=== PATIENT | male | born 1980 | race Caucasian/White ===

== ENCOUNTER 2018-09-17 00:51 | Emergency (ER) | payer MEDICAID ==
[2018-09-17] MEDS ORDERED: solu-MEDROL 125 MG IV ONE (01:01)
[2018-09-17] MEDS ORDERED: DUONEB 0.5-3 MG/3 ml Neb IH ONE ×4 (01:01→02:24)
[2018-09-17] MEDS ORDERED: ROCEPHIN 1 Gm-D5w 50 ml Bag** 1 G/50 ML IVPB IV STA (01:01)
[2018-09-17] MEDS ORDERED: Zithromax 500 MG/ 250 ML NaCl Premix 500 MG/250 ML IVPB IV STA (01:01)
[2018-09-17] MEDS ORDERED: Sodium Chloride 0.9% 1000 ML 1,000 ML IV STA (01:03)
[2018-09-17 01:05] VITALS: BP 134/92
[2018-09-17] MEDS ORDERED: DELTASONE 20 MG PO ONE (01:22)
[2018-09-17] MEDS ORDERED: Augmentin 875-125 Tablet PO ONE (01:22)
[2018-09-17] MEDS ORDERED: DELTASONE 20 MG ONE (01:28)
[2018-09-17] MEDS ORDERED: Augmentin 875-125 Tablet ONE (01:28)
[2018-09-17 01:29] VITALS: O2SAT 98
--- NOTE | 2018-09-17 01:29 | ERPHSYRPT ---
- History of Present Illness Time Seen by Provider: 09/17/18 01:12 Source: patient Exam Limitations: clinical condition Patient Subjective Stated Complaint: pt states he has had a cough for ap[prox 1 week. states tonight while sitting he began coughing and couldnt catch his breath. Triage Nursing Assessment: pt alert and oriented, answers questions approp. pt ambulatory with steady gait noted. respirations nonlabored at th is time. exp wheezes noted bilat throughout. skin warm. Physician History: PATIENT WITH A HISTORY OF INTRAVENOUS SUBSTANCE ABUSE COMPLAINS OF A NONPRODUCTIVE COUGH FOR 1 WEEK, ASSOCIATED WITH DIFFICULTY BREATHING TONIGHT. DENIES FEVER, CHILLS, CHEST PAIN OR AUDIBLE WHEEZES. Timing/Duration: week(s) Cough Quality/Degree: moderate, dry cough Possible Cause: occasional episodes Modifying Factors: Improves With: activity Associated Symptoms: denies symptoms International travel in last 2 weeks: No Allergies/Adverse Reactions: No Known Drug Allergies Allergy (Verified 09/17/18 01:04) Hx Tetanus, Diphtheria Vaccination/Date Given: No Hx Influenza Vaccination/Date Given: No Hx Pneumococcal Vaccination/Date Given: No Immunizations Up to Date: No - Review of Systems Constitutional: No Fever, No Chills Eyes: No Symptoms Ears, Nose, & Throat: No Symptoms Respiratory: Cough, No Dyspnea Cardiac: No Symptoms, No Chest Pain, No Edema, No Syncope Abdominal/Gastrointestinal: No Symptoms, No Abdominal Pain, No Nausea, No Vomiting, No Diarrhea Genitourinary Symptoms: Incontinence, No Dysuria Musculoskeletal: No Symptoms, No Back Pain, No Neck Pain Skin: No Symptoms, No Rash Neurological: No Dizziness, No Focal Weakness, No Sensory Changes Psychological: No Symptoms Endocrine: No Symptoms All Other Systems: Reviewed and Negative - Past Medical History Pertinent Past Medical History: No - Past Surgical History Past Surgical History: No - Social History Smoking Status: Never smoker Exposure to second hand smoke: Yes Drug Use: marijuana Patient Lives Alone: No - Nursing Vital Signs Nursing Vital Signs: Initial Vital Signs Temperature 97.8 F 09/17/18 00:57 Pulse Rate 85 09/17/18 00:57 Respiratory Rate 18 09/17/18 00:57 Blood Pressure 134/92 09/17/18 00:57 O2 Sat by Pulse Oximetry 95 09/17/18 00:57 Pain Scale Pain Intensity 0 - Physical Exam General Appearance: no apparent distress, alert Eye Exam: PERRL/EOMI, eyes nml inspection Ears, Nose, Throat Exam: normal ENT inspection, TMs normal, pharynx normal, moist mucous membranes Neck Exam: normal inspection, non-tender, supple, full range of motion Respiratory Exam: normal breath sounds, lungs clear, other (GOOD AIR EXCHANGE OCCASIONAL TERMINAL EXPIRATORY WHEEZES, NO RHONCHI), No respiratory distress Cardiovascular Exam: regular rate/rhythm, normal heart sounds Gastrointestinal/Abdomen Exam: soft, No tenderness Back Exam: normal inspection, No CVA tenderness, No vertebral tenderness Extremity Exam: normal inspection, normal range of motion Neurologic Exam: alert, oriented x 3, cooperative, normal mood/affect, sensation nml, No motor deficits Skin Exam: normal color, warm, dry, No rash Lymphatic Exam: No adenopathy SpO2 Interpretation: normal SpO2: 98 O2 Delivery: Room Air - Radiology Exams Chest X-ray Interpretation: Interpreted by me, Negative, No Infiltrates Ordered Tests: Active Orders 24 hr Category Date Time Status EKG-ER Only STAT Care 09/17/18 01:01 Active Oxygen-ED Only Nasal Cannula 2 lpm Care 09/17/18 01:01 Active CHEST 1 VIEW (PORTABLE) Stat Exams 09/17/18 01:01 Taken Peak Expiratory Flow Rate ONCE RT 09/17/18 01:01 Active Respiratory Therapy Assessment DAILY RT 09/17/18 01:20 Active Medication Summary Generic Name Dose Route Start Last Admin Trade Name Freq PRN Reason Stop Dose Admin Albuterol Sulfate 2 gm 09/17/18 02:03 Ventolin Hfa Mdi IH 10/17/18 09:59 QID PRN DIFFICULTY BREATHING Discontinued Medications Generic Name Dose Route Start Last Admin Trade Name Freq PRN Reason Stop Dose Admin Albuterol/Ipratropium 3 ml 09/17/18 01:01 09/17/18 01:23 Duoneb 0.5-3 Mg/3 Ml Neb IH 09/17/18 01:02 3 ml STAT ONE Administration Albuterol/Ipratropium Confirm 09/17/18 01:21 Duoneb 0.5-3 Mg/3 Ml Neb Administered 09/17/18 01:22 Dose 3 ml IH .STK-MED ONE Albuterol/Ipratropium 3 ml 09/17/18 02:03 Duoneb 0.5-3 Mg/3 Ml Neb IH 09/17/18 02:04 STAT ONE Amoxicillin/Clavulanate Potassium 875 mg 09/17/18 01:22 09/17/18 01:29 Augmentin 875-125 Tablet PO 09/17/18 01:23 875 mg STAT ONE Administration Amoxicillin/Clavulanate Potassium Confirm 09/17/18 01:28 Augmentin 875-125 Tablet Administered 09/17/18 01:29 Dose 875 mg .ROUTE .STK-MED ONE Ceftriaxone Sodium/Dextrose 1 g in 50 mls @ 100 mls/hr 09/17/18 01:01 01:24 Rocephin 1 Gm-D5w 50 Ml Bag IV 09/17/18 01:30 Not Given STAT STA Azithromycin 500 mg in 250 mls @ 250 mls/hr 09/17/18 01:01 09/17/18 01:24 Zithromax 500 Mg/ 250 Ml Nacl Premix IV 09/17/18 02:00 Not Given STAT STA Sodium Chloride 1,000 mls @ 999 mls/hr 09/17/18 01:03 09/17/18 01:24 Sodium Chloride 0.9% 1000 Ml IV 09/17/18 02:03 Not Given .Q1H1M STA Methylprednisolone Sodium Succinate 125 mg 09/17/18 01:01 09/17/18 01:24 Solu-Medrol 125 Mg IV 09/17/18 01:02 Not Given STAT ONE Prednisone 60 mg 09/17/18 01:22 09/17/18 01:29 Deltasone 20 Mg PO 09/17/18 01:23 60 mg STAT ONE Administration Prednisone Confirm 09/17/18 01:28 Deltasone 20 Mg Administered 09/17/18 01:29 Dose 60 mg .ROUTE .STK-MED ONE Lab/Rad Data: Laboratory Results 09/17/18 Range/Units 01:20 Influenza Type A Ag NEGATIVE (NEGATIVE) Influenza Type B Ag NEGATIVE (NEGATIVE) RSV (PCR) NEGATIVE (Negative) - Progress Progress: improved Air Movement: good Progress Note: 09/17/18 01:27 UNABLE TO OBTAIN INTRAVENOUS ACCESS. PEAK FLOW- [id number], POST 400 , DUONEB AEROSOL, PREDNISONE 60MG, AUGMENTIN 875MG ORALLY 09/17/18 02:17 Counseled pt/family regarding: diagnosis, need for follow-up, rad results - Departure Departure Disposition: Home Clinical Impression: ACUTE BRONCHITIS WITH BRONCHIOSPASM Condition: Stable Critical Care Time: No Referrals: ELISABETH BUSTAMANTE [Primary Care Provider] - Additional Instructions: PREDNISONE 20MG, 2 TABLETS DAILY FOR 4 DAYS. ANTIBIOTIC AUGMENTIN 875MG TWICE DAILY FOR 10 DAYS. VENTOLIN INHALER HFA 8MG, 2 PUFFS EVERY 4 HOURS NEEDED FOR DIFFICULTY BREATHING. Prescriptions: Albuterol 8 gm Mdi Hfa [Ventolin Hfa MDI] 2 puffs IH QID #1 hfa.aer.ad Amox Tr/Potass Clav. 875 mg [Augmentin 875-125 Tablet] 875 mg PO BID #20 tablet Prednisone 20 mg [Deltasone 20 mg] 2 tab PO DAILY #8 tablet
[2018-09-17 01:57] LABS: INFLUENZA A NEGATIVE (NEGATIVE); INFLUENZA B NEGATIVE (NEGATIVE); RESPIRATORY SYNCTIAL VIRUS NEGATIVE (Negative)
[2018-09-17] MEDS ORDERED: Ventolin Hfa MDI IH PRN (02:03)
[2018-09-17] MEDS ORDERED: Ventolin Hfa MDI IH ONE (02:19)
[2018-09-17 02:24] VITALS: PULSE 88
--- NOTE | 2018-09-17 07:58 | XRAY ---
Indication: Cough. Dyspnea. Comparison: None Portable chest demonstrates normal heart, lungs, and bony thorax.
== END 2018-09-17 02:45 | disposition home or self-care (01) ==
LOC: ED 00:51
DX: J20.9 Acute bronchitis, unspecified (principal); J98.01 Acute bronchospasm
CPT/HCPCS: 71045; 87631; 93005; 94150; 94640; 99284; A9270-GY

== ENCOUNTER 2022-05-11 22:45 | Emergency (ER) | payer MEDICAID, OTHER ==
--- NOTE | 2022-05-11 22:59 | ERPHSYRPT ---
- History of Present Illness Time Seen by Provider: 05/11/22 22:58 Source: patient Exam Limitations: no limitations Physician History: This is a 41-year-old white male who has generalized poor dentition. He presents with left lower back molar pain that has been present for a few days. He has tried ibuprofen and Tylenol without benefit. He states that he has been trying to get into see a dentist. Timing/Duration: day(s) (3) Severity: moderate Associated Symptoms: denies symptoms Allergies/Adverse Reactions: No Known Drug Allergies Allergy (Verified 05/11/22 23:19) Hx Tetanus, Diphtheria Vaccination/Date Given: No Hx Influenza Vaccination/Date Given: No Hx Pneumococcal Vaccination/Date Given: No Travel Risk - International Travel Have you traveled outside of the country in past 3 weeks: No - Coronavirus Screening Are you exhibiting any of the following symptoms?: No Close contact with a COVID-19 positive Pt in past 14-21 Days: No - Review of Systems Constitutional: No Symptoms Eyes: No Symptoms Ears, Nose, & Throat: Other (Dental pain and infection) Respiratory: No Symptoms Cardiac: No Symptoms Abdominal/Gastrointestinal: No Symptoms Genitourinary Symptoms: No Symptoms Musculoskeletal: No Symptoms Skin: No Symptoms Neurological: No Symptoms Psychological: No Symptoms Endocrine: No Symptoms Hematologic/Lymphatic: No Symptoms Immunological/Allergic: No Symptoms All Other Systems: Reviewed and Negative - Past Medical History Pertinent Past Medical History: No - Past Surgical History Past Surgical History: No - Social History Smoking Status: Never smoker Exposure to second hand smoke: Yes Drug Use: marijuana Patient Lives Alone: No - Nursing Vital Signs Nursing Vital Signs: Initial Vital Signs Temperature 97.8 F 05/11/22 23:08 Pulse Rate 79 05/11/22 23:08 Respiratory Rate 18 05/11/22 23:08 Blood Pressure 151/103 05/11/22 23:08 O2 Sat by Pulse Oximetry 99 05/11/22 23:08 Pain Scale Pain Intensity 7 - Physical Exam General Appearance: no apparent distress, alert, anxiety Eye Exam: PERRL/EOMI Ears, Nose, Throat Exam: normal ENT inspection, other (Dental pain left rear molar. Dental fractures.) Neck Exam: normal inspection, non-tender, supple, full range of motion Respiratory Exam: normal breath sounds, lungs clear, airway intact, No chest tenderness, No respiratory distress Gastrointestinal/Abdomen Exam: No tenderness Rectal Exam: not done Back Exam: normal inspection, normal range of motion, No CVA tenderness, No vertebral tenderness Extremity Exam: normal inspection, normal range of motion, pelvis stable Neurologic Exam: alert, oriented x 3, cooperative, medical information officer II-XII nml as tested, normal mood/affect, nml cerebellar function, nml station & gait, sensation nml Skin Exam: normal color, warm, dry Lymphatic Exam: No adenopathy SpO2 Interpretation: normal O2 Delivery: Room Air - Course Nursing assessment & vital signs reviewed: Yes Ordered Tests: Medication Summary Discontinued Medications Generic Name Dose Route Start Last Admin Trade Name Sandy PRN Reason Stop Dose Admin Amoxicillin 500 mg 05/11/22 23:31 Amoxicillin Trihydrate 500 Mg Capsule PO 05/11/22 23:32 STAT ONE Oxycodone/Acetaminophen 2 tab 05/11/22 23:30 Oxycodone Hcl/Apap 5 Mg/325 Mg Tablet PO 05/11/22 23:31 SENT HOME W/ PATIENT STA - Progress Progress: unchanged Counseled pt/family regarding: diagnosis, need for follow-up Medical Desision Making - Discussion of managment Agreed on:: Treatment plan, need for follow-up - Social Determinants of Health Limited access to: medical care - Diagnostic Testing Diagnostic test were ordered, analyzed, and reviewed by me: No - Risk of complications Minimal Risk: Minimal risk of morbidity - Departure Departure Disposition: Home Clinical Impression: Dental infection, Tooth fracture Condition: Stable Critical Care Time: No Referrals: DOCTOR,NO FAMILY [Primary Care Provider] - Follow up/PCP as directed Additional Instructions: Drink plenty of fluids. Use Tylenol and ibuprofen for pain control after your Percocet have been used up. Continue your antibiotics as prescribed. Call your dentist tomorrow morning to make arrangements for follow-up appointment and definitive care. Prescriptions: Amoxicillin 500 mg Cap [Amoxil 500 mg] 500 mg PO TID #30 cap
[2022-05-11] MEDS ORDERED: PERCOCET TABLET 5/325MG PO STA (23:30)
[2022-05-11] MEDS ORDERED: AMOXIL 500 MG PO ONE (23:31)
[2022-05-11] MEDS ORDERED: AMOXIL 500 MG ONE (23:41)
[2022-05-11] MEDS ORDERED: PERCOCET TABLET 5/325MG ONE (23:41)
[2022-05-11 23:47] VITALS: BP 142/92; PULSE 77; O2SAT 98
== END 2022-05-11 23:50 | disposition home or self-care (01) ==
LOC: ED 22:45
DX: K04.7 Periapical abscess without sinus (principal); K03.81 Cracked tooth; K08.89 Other specified disorders of teeth and supporting structures
CPT/HCPCS: 99282; A9270-GY